=== PATIENT | male | born 1990 | race Caucasian/White ===

== ENCOUNTER 2018-12-02 11:51 | Emergency (ER) | payer BC ==
[2018-12-02] MEDS ORDERED: Sodium Chloride 0.9% 1,000 ML IV ONE (11:59)
[2018-12-02] MEDS ORDERED: Sodium Chloride 0.9% 2.5 ML Syringe FLUSH PRN (11:59)
[2018-12-02] MEDS ORDERED: Sodium Chloride 0.9% 10 ML Syringe FLUSH PRN (11:59)
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
[2018-12-02] MEDS ORDERED: Diphtheria,Pertussis(Acell),Tetanus Vaccine 0.5 ML Syringe IM ONE (12:26)
[2018-12-02] MEDS ORDERED: ceFAZolin 2 GM in Premix Bag 1 BAG IV ONE (12:26)
[2018-12-02] MEDS ORDERED: Ondansetron 4 MG/2 ML SDV IVPUSH ONE (12:27)
[2018-12-02] MEDS ORDERED: Morphine 4 MG/ML Syringe IVPUSH ONE (12:27)
[2018-12-02 12:41] LABS: CHLORIDE,CL 108 mmol/L (98-107); SODIUM,NA 143 mmol/L (136-148)
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
--- NOTE | 2018-12-02 13:11 | CT ---
EXAMINATION: CT cervical spine HISTORY: Pain COMPARISON: None TECHNIQUE: Axial CT imaging obtained through the cervical spine without contrast. Coronal and sagittal reconstructions obtained. FINDINGS: The cervical spinal alignment is normal. The vertebral body heights and disc spaces appear well-maintained. There is no fracture or acute osseous abnormality. Bone mineralization is normal. Paravertebral soft tissues and lung apices are normal. IMPRESSION: 1. Unremarkable cervical spine.
--- NOTE | 2018-12-02 13:29 | CT ---
CT of the chest, abdomen and pelvis with contrast. HISTORY: Pain TECHNIQUE: Axial CT images were obtained of the chest, abdomen and pelvis following administration of 100 mL of Isovue-370 in the right antecubital fossa without complication. Coronal and sagittal reconstructions obtained. FINDINGS: Chest: The lungs are clear without focal consolidation. No pleural effusion or pneumothorax. Minimal dependent atelectasis. The heart is normal in size without a pericardial effusion. No mediastinal,, hilar, or axillary lymphadenopathy. Residual thymic tissue noted. Thoracic aorta is normal in caliber. Abdomen: The liver, spleen, adrenal glands, and pancreas appear normal. The gallbladder is normal. PATHOLOGICALLY ENLARGED RETROPERITONEAL LYMPH NODES NOTED. The kidneys enhance and function symmetrically without evidence of obstructive uropathy. Pelvis: The large and small bowel are normal in caliber without evidence of obstruction. No focal pericolonic inflammation or stranding. Appendix is normal. There is no bulky pelvic lymphadenopathy or free pelvic fluid. Urinary bladder is normal. No suspicious osseous abnormalities identified. IMPRESSION: 1. No acute findings noted within the chest, abdomen, or pelvis.
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
--- NOTE | 2018-12-02 14:24 | CT ---
EXAMINATION: Non contrast CT head and facial bones. Coronal and sagittal reformats. HISTORY: Pain FINDINGS: Head: No evidence of intra or extra axial hemorrhage, mass, midline shift, hydrocephalus or edema. No hypoattenuation changes in the major vascular territories to suggest acute infarct. No abnormal intracranial calcifications are detected. No evidence of substantial vascular calcifications. There are a few tiny mucous retention cyst within the maxillary sinuses. Pituitary fossa appears unremarkable. The calvarium is intact. No evidence of skull fracture. Facial bones: Minimally displaced nasal bone fractures noted. Several dental caries are noted bilaterally. Orbits and globes are symmetric. Mild supraorbital and periorbital soft tissue thickening with debris. Orbits and globes are symmetric. The zygomatic arches and pterygoid plates are intact. Maxillary and orbital alvarado are intact. Mastoid air cells and middle ears are clear. IMPRESSION: 1. No acute intracranial findings. 2. Minimally displaced nasal bone fractures. 3. Supraorbital and periorbital soft tissue swelling without evidence of intraorbital extension. Mild overlying cutaneous debris noted.
--- NOTE | 2018-12-02 14:24 | CT ---
EXAMINATION: CT thoracic and lumbar spine with contrast HISTORY: Pain COMPARISON: None TECHNIQUE: Axial CT images obtained through the thoracic and lumbar spine following the administration of 100 mL of Isovue-370 the right antecubital fossa. FINDINGS: Thoracic spine: The thoracic spinal alignment is normal. The vertebral body heights and disc spaces appear well-maintained. There is no fracture or acute osseous abnormality. Bone mineralization is normal. Lumbar spine: The lumbar spinal alignment is normal. The vertebral body heights and disc spaces appear well-maintained. There is no fracture or acute osseous abnormality. Bone mineralization is normal. SI joints are symmetric. The paravertebral soft tissues are normal. No abnormal enhancement. IMPRESSION: No acute osseous abnormality noted within the thoracic or lumbar spine.
[2018-12-02] MEDS ORDERED: Iopamidol 755 MG/ML 500 ML Multipack Bottle IVPUSH ONE (15:13)
== END 2018-12-02 13:35 ==
LOC: MW.ED 11:51
DX: S06.0X9A Concussion with loss of consciousness of unspecified duration, initial encounter (principal); S52.255A Nondisplaced comminuted fracture of shaft of ulna, left arm, initial encounter for closed fracture; V64.5XXA Driver of heavy transport vehicle injured in collision with heavy transport vehicle or bus in traffic accident, initial encounter
CPT/HCPCS: 36415; 70450; 70486; 71260; 72125; 73090; 73552; 73590; 74177; 80053; 83690; 84484; 85025; 85610; 90471; 90715; 93005; 96365; 96375; 99285; G0390; G0480; J0690; J2270; J2405; J7040; Q9967; 72128; 72128-26; 72131; 72131-26

== ENCOUNTER 2018-12-03 23:39 | Emergency (ER) | payer OTHER, BC ==
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
[2018-12-04 00:30] LABS: CHLORIDE,CL 106 mmol/L (98-107); SODIUM,NA 142 mmol/L (136-148)
== END 2018-12-04 00:45 | disposition home or self-care (01) ==
LOC: MW.ED 23:39
DX: R50.9 Fever, unspecified (principal); Z88.1 Allergy status to other antibiotic agents; Z88.8 Allergy status to other drugs, medicaments and biological substances
CPT/HCPCS: 36415; 80053; 85025; 99283

== ENCOUNTER 2020-03-22 13:35 | Day surgery (SDC) | payer SELFPAY ==
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
--- NOTE | 2020-03-22 14:06 | PCM.SN.2 ---
- Free Text/Narrative Note: pt seen, chart reviewed; ct +ve appendicitis, proceed w surgery; rb dw pt re bleeding/infection/damage to nearby organs, pt concured and proceed; [id number]
[2020-03-22] MEDS ORDERED: cefOXitin 2 GM in Premix Bag 1 BAG IV ONE (14:08)
[2020-03-22] MEDS ORDERED: Lactated Ringers 1,000 ML IV ONE (14:09)
[2020-03-22] MEDS ORDERED: Sodium Chloride 0.9% 10 ML Syringe FLUSH PRN (14:12)
[2020-03-22] MEDS ORDERED: Sodium Chloride 0.9% 10 ML SDV IV PRN (14:12)
[2020-03-22] MEDS ORDERED: Sodium Chloride 0.9% 2.5 ML Syringe FLUSH PRN (14:12)
[2020-03-22] MEDS ORDERED: Lactated Ringers 1,000 ML IV SCH (14:15)
[2020-03-22] MEDS ORDERED: Bupivacaine 0.25%/EPINEPHrine 1:200,000 10 ML SDV ONE (14:32)
[2020-03-22] MEDS ORDERED: Propofol 200 MG/20 ML SDV ONE ×2 (14:52→16:28)
[2020-03-22] MEDS ORDERED: fentaNYL 100 MCG/2 ML SDV ONE ×2 (14:53→15:28)
[2020-03-22] MEDS ORDERED: Midazolam 1 MG/ML 2 ML SDV ONE (14:53)
[2020-03-22] MEDS ORDERED: Sugammadex Sodium 200 MG/2 ML VIAL ONE (14:56)
[2020-03-22] MEDS ORDERED: Rocuronium 100 MG/10 ML Syringe ONE (15:23)
[2020-03-22] MEDS ORDERED: Ondansetron 4 MG/2 ML SDV ONE (15:23)
[2020-03-22] MEDS ORDERED: Dexamethasone 4 MG/ML 5 ML MDV ONE (15:23)
[2020-03-22] MEDS ORDERED: Ketorolac 30 MG/ML SDV ONE (16:12)
--- NOTE | 2020-03-22 16:25 | PCM.OPNOTE ---
- General Post-Op/Procedure Note Date of Surgery/Procedure: 03/22/20 Operative Procedure(s): lap appy Findings: appendix was dilated, hyperemic, at the middle 1/3 and severely interacting w surround organs; gross perf not observed; [id number] Pre Op Diagnosis: acute appendicitis Post-Op Diagnosis: Same Anesthesia Technique: General ET Tube Primary Surgeon: Macario He Pathology: sent Complications: None Condition: Good
[2020-03-22] MEDS ORDERED: Ketorolac 30 MG/ML SDV IVPUSH PRN (16:28)
[2020-03-22] MEDS ORDERED: Acetaminophen/oxyCODONE 325-5 MG Tab PO PRN (16:28)
[2020-03-22] MEDS ORDERED: Meperidine PF 25 MG/ML Syringe ONE (16:28)
[2020-03-22] MEDS ORDERED: Ondansetron 4 MG/2 ML SDV IVPUSH PRN (16:29)
[2020-03-22] MEDS ORDERED: cefOXitin 1 GM in Premix Bag 1 BAG IV SCH (16:30)
[2020-03-22] MEDS ORDERED: fentaNYL 100 MCG/2 ML SDV IVPUSH PRN (16:45)
--- NOTE | 2020-03-22 17:18 | PCM.POSTAN ---
POST ANESTHESIA ASSESSMENT - MENTAL STATUS Mental Status: Alert, Oriented - VITAL SIGNS Vital Signs: Last Vital Signs Temp 36.4 C 03/22/20 16:30 Pulse 79 03/22/20 17:11 Resp 14 03/22/20 17:11 BP 116/89 03/22/20 17:11 Pulse Ox 100 03/22/20 17:11 - RESPIRATORY Respiratory Status: Respiratory Rate WNL, Airway Patent, O2 Saturation Stable - CARDIOVASCULAR CV Status: Pulse Rate WNL, Blood Pressure Stable - GASTROINTESTINAL GI Status: No Symptoms - PAIN Pain Score: 4 (Patient states "alright" with this level.) - POST OP HYDRATION Hydration Status: Adequate & Stable - OBSERVATIONS Free Text/Narrative:: No anesthesia complications noted.
[2020-03-22] MEDS: cefOXitin 1 GM in Premix Bag 1 BAG IV SCH (20:01)
[2020-03-22] MEDS: Lactated Ringers 1,000 ML IV SCH (22:01)
[2020-03-23] MEDS: cefOXitin 1 GM in Premix Bag 1 BAG IV SCH ×2 (02:18→08:34)
[2020-03-23] MEDS: Lactated Ringers 1,000 ML IV SCH (05:11)
[2020-03-23] MEDS ORDERED: Rocuronium 100 MG/10 ML Syringe ONE (10:28)
--- NOTE | 2020-03-23 11:20 | CONS ---
DATE OF CONSULTATION: 03/22/2020 DATE OF : 1990 PRIMARY CARE PHYSICIAN: None PCP REASON FOR CONSULTATION: The patient is a consult from Carla Núñez. Consulting question, acute appendicitis. HISTORY OF PRESENT ILLNESS: The patient is a 29-year-old gentleman complaining over 24 hours he has a gradual onset of right lower quadrant pain. Pain is so bad, he thinks it is 11/10. He cannot move and very bad, and he kind of toughed it through and saw the primary provider this morning, and CAT scan shows acute appendicitis. The patient is now admitted to Surgery for further management. Currently, the patient thinks the pain is slightly better. It is about 7/10 and denied prior episode. Denied fever, chill, or diarrhea, but admitted to having nausea and vomiting. The patient threw up. The last time he had anything to eat or drink is 12 hours ago. PAST MEDICAL HISTORY: Significant for no diabetes, ID, CVA, or hypertension. PAST SURGICAL HISTORY: No abdominal surgery. ALLERGIES: Please refer to nursing for detail. MEDICATIONS: Please refer to nursing for detail. FAMILY HISTORY: No family history of malignant hyperthermia. SOCIAL HISTORY: No alcohol. PHYSICAL EXAMINATION: GENERAL: A very pleasant nice young man, self-ambulating, walking around, very polite, and cooperating with examination. HEENT: Normocephalic and atraumatic. Sclerae anicteric. LUNGS: Clear to auscultation. HEART: Regular rate and rhythm. ABDOMEN: Soft, nondistended. No pulsating tender midline abdominal structure. There is a small umbilical hernia and exquisite tenderness at the McBurney point. No rebound tenderness. No Rovsing sign. DIAGNOSTIC STUDIES: CAT scan shows acute appendicitis. IMPRESSION: Acute appendicitis. Would benefit from a tiny intervention, surgery. Risks and benefits discussed with the patient including bleeding, infection, and damage to nearby organs. The patient concurred to proceed as planned. Also talked about postoperative course and pain management, and we will proceed for surgery. CC: JERE Mathias [facility] [address] [place] [address] PIYUSH / LIUDMILA /[id number]
--- NOTE | 2020-03-23 11:31 | PCM48HPAN ---
Post Anesthesia Note - EVALUATION WITHIN 48HRS OF ANESTHETIC Vital Signs in Normal Range: Yes Patient Participated in Evaluation: Yes Respiratory Function Stable: Yes Airway Patent: Yes Cardiovascular Function Stable: Yes Hydration Status Stable: Yes Pain Control Satisfactory: Yes Nausea and Vomiting Control Satisfactory: Yes Mental Status Recovered: Yes Vital Signs: Last Vital Signs Temp 36.9 C 03/23/20 07:52 Pulse 57 L 03/23/20 07:52 Resp 15 03/23/20 07:52 BP 126/57 L 03/23/20 07:52 Pulse Ox 96 03/23/20 07:52 - COMMENTS/OBSERVATIONS Free Text/Narrative:: Patient doing well today. No anesthesia complications noted. No questions or concerns related to anesthesia.
--- NOTE | 2020-03-25 08:54 | OR ---
SURGEON: Macario He MD DATE OF PROCEDURE: 03/22/2020 PREOPERATIVE DIAGNOSIS: Acute appendicitis. POSTOPERATIVE DIAGNOSIS: Acute appendicitis. PROCEDURE PERFORMED: Laparoscopic appendectomy. PRIMARY SURGEON: Macario He MD COMPLICATIONS: None. FINDINGS: Appendix is very dilated and also inflamed and hyperemic, right at the middle third of the appendix, and also with severe inflammation surrounding the appendix. At the end of surgery, a piece of Surgicel was added for hemostasis. DESCRIPTION OF PROCEDURE: The patient was taken to the operating room and placed in the supine position. Following induction of general endotracheal anesthesia, the patient's abdomen was prepped and draped in the sterile fashion. A time-out has been called. The patient was identified. The procedure was identified. The antibiotics were identified. The procedure then proceeded. The abdomen was prepped and draped in a standard fashion. After assessment of appropriate landmarks, a 12 millimeter trocar was inserted supraumbilically using Optiview and pneumoperitoneum was then achieved. This was followed with placement of 5 millimeter port in the right upper quadrant and another 5 millimeter port infraumbilically. The camera was inserted supraumbilical site and two laparoscopic Tonica retractors were then inserted through the other two sites. Following the cecum, the appendix was located. The appendix was then lifted up, and using a GI stapler the appendix was amputated at the base. And using the GI stapler, the mesoappendix was then amputated. The appendix was retrieved by an endoscopic bag and sent for pathologist. This was then followed by re-insertion of the camera to examine the staple line, and hemostasis. The trocars were then removed. The umbilical site was closed with 2-0 Vicryl deep stitch and 4 -0 Vicryl and Dermabond; the other 2 5 mm port sites were closed with 4-0 Vicryl and Dermabond. The patient was then awakened, extubated, and transferred to the recovery room in hemodynamically stable condition. Prior to closing, sponge count and instrument count was correct. Dr. He was present throughout the whole procedure. At the end of surgery, a piece of Surgicel was inserted for hemostasis and the port site was closed with skin staple. Intraoperative findings as dictated above. The appendix does not have gross perforation as gross perforation was not observed. As always, thank you for the kind referral. PIYUSH / LIUDMILA /[id number]
== END 2020-03-23 09:50 | disposition home or self-care (01) ==
LOC: MW.SDS 13:35 → MW.MS 13:39 → MW.SDS 03-23 09:50
PROVIDERS: ATTEND Surgery
DX: K35.80 Unspecified acute appendicitis (principal); J45.909 Unspecified asthma, uncomplicated; Z88.0 Allergy status to penicillin; Z91.030 Bee allergy status
CPT/HCPCS: 44970; 82962; A9270; J0694; J1100; J1885; J2175; J2250; J2405; J2704; J3010; J3490; J7120; 00840; C1776